=== PATIENT | male | born 1950 | race Caucasian/White ===

== ENCOUNTER 2019-05-22 14:07 | Inpatient (IN) | payer OTHER ==
[~2019-05-22] VITALS: Ht 157.5 cm; Wt 64.4 kg
[2019-05-22] MEDS ORDERED: PIPERACILLIN/TAZO 3.375 GM in NS 50 ML IV ONE (14:30)
[2019-05-22] MEDS ORDERED: NACL 0.9% 2,000 ML IV ONE (14:30)
[2019-05-22] MEDS ORDERED: INSULIN REGULAR, HUMAN 10 UNITS/0.1 ML INJ IVP ONE (14:30)
[2019-05-22] MEDS ORDERED: VANCOMYCIN HCL 1,000 MG in NS 250 ML IV ONE (14:30)
[2019-05-22] MEDS ORDERED: PIPERACILLIN/TAZOBACTAM 3.375 GM/VIAL (ZOSYN) IV ONE (15:12)
[2019-05-22 15:14] LABS: BASOPHILS # (AUTO) 0.1 K/uL (0.0-0.2); BASOPHILS % (AUTO) 0.5 % (0.0-2.0); EOSINOPHILS # (AUTO) 0.2 K/uL (0.0-0.4); EOSINOPHILS % (AUTO) 1.8 % (0.0-4.0); HEMATOCRIT 34.6 % (36-54); HEMOGLOBIN 11.7 g/dL (14.0-18.0); LYMPHOCYTES # (AUTO) 2.2 K/uL (1.0-5.5); LYMPHOCYTES % (AUTO) 20.7 % (20.5-51.5); MEAN CORPUSCULAR HEMOGLOBIN 28 pg (27-31); MEAN CORPUSCULAR HGB CONC 34 % (32-36); MEAN CORPUSCULAR VOLUME 82 fL (79.0-98.0); MONOCYTES # (AUTO) 0.5 K/uL (0.0-1.0); MONOCYTES % (AUTO) 4.7 % (1.7-9.3); NEUTROPHILS # (AUTO) 7.8 K/uL (1.8-7.7); NEUTROPHILS % (AUTO) 72.3 % (40.0-70.0); PLATELET COUNT (AUTO) 366 K/uL (130-430); RED BLOOD CELL COUNT(AUTO) 4.24 MIL/uL (4.2-6.2); RED CELL DISTRIBUTION WIDTH 15.2 % (9.0-15.0); WHITE BLOOD COUNT (AUTO) 10.8 K/uL (4.8-10.8)
[2019-05-22 16:19] LABS: CALCIUM 8.4 mg/dL (8.4-11.0); CREATININE 0.54 mg/dL (0.55-1.30); POTASSIUM 3.7 mmol/L (3.5-5.1)
[2019-05-22 16:25] LABS: ALBUMIN 2.5 g/dL (3.4-4.8); TOTAL BILIRUBIN 0.2 mg/dL (0.0-1.0)
[2019-05-22] MEDS ORDERED: VANCOMYCIN HCL 1000 MG/VIAL IV ONE (16:26)
[2019-05-22] MEDS ORDERED: KCL 20 mEq in D5/0.45NS 1000mL 1,000 ML IV ONE ×2 (17:00→23:49)
[2019-05-22] MEDS ORDERED: hydrALAZINE HCL 20 MG/ML VIAL IVP ONE (17:00)
[2019-05-22] MEDS ORDERED: HUM10VIA SQ (17:04)
[2019-05-22] MEDS ORDERED: AMPICILLIN SODIUM/SULBACTAM NA 1.5 GM in NS 50 ML IV SCH (18:15)
[2019-05-22] MEDS ORDERED: AMPICILLIN SODIUM/SULBACTAM NA 3 GM in NS 100 ML IV SCH (18:15)
[2019-05-22 18:59] VITALS: BP_SYST 124
[2019-05-22 19:00] VITALS: BP_SYST 136
[2019-05-22 19:30] VITALS: BP_SYST 136
[2019-05-22] MEDS ORDERED: traMADol HCL HCL 50 MG TABLET (ULTRAM) PO PRN (19:45)
[2019-05-22 19:51] LABS: INR 0.9 (0.80-1.20); PROTHROMBIN TIME 9.2 SECS (9.5-12.5)
[2019-05-22 20:00] VITALS: BP_SYST 136
[2019-05-22] MEDS: LISINOPRIL 10 MG TABLET (PRINIVIL) PO SCH (22:54)
[2019-05-22] MEDS: ENOXAPARIN SODIUM 40 MG/0.4 ML SYRINGE SUBCUT SCH (23:02)
[2019-05-22] MEDS: INSULIN NPH/REGULAR 70-30, 100 UNITS/ML, 10 ML VIAL SQ SCH (23:03)
[2019-05-22] MEDS: INSULIN REGULAR, HUMAN 100 UNITS/ML, 10 ML VIAL (humuLIN R) SUBCUT PRN (23:04)
[2019-05-22] MEDS ORDERED: LISINOPRIL 10 MG TABLET (PRINIVIL) ONE (23:07)
[2019-05-23] MEDS: AMPICILLIN SODIUM/SULBACTAM NA 1.5 GM VIAL ONE ×2 (01:00→01:01)
[2019-05-23] MEDS: AMPICILLIN SODIUM IV SCH ×5 (01:31→23:03)
[2019-05-23] MEDS: NS IV SCH ×5 (01:31→23:03)
[2019-05-23] MEDS ORDERED: AMPICILLIN SODIUM 1 GM VIAL ONE (01:35)
[2019-05-23] MEDS: INSULIN REGULAR, HUMAN 100 UNITS/ML, 10 ML VIAL (humuLIN R) SUBCUT PRN ×4 (06:09→23:08)
[2019-05-23 08:00] VITALS: BP_SYST 117
[2019-05-23] MEDS: INSULIN NPH/REGULAR 70-30, 100 UNITS/ML, 10 ML VIAL SQ SCH ×2 (09:00→23:07)
[2019-05-23] MEDS: ASPIRIN 81 MG TAB.CHEW PO SCH (09:14)
[2019-05-23] MEDS: LISINOPRIL 10 MG TABLET (PRINIVIL) PO SCH (09:15)
[2019-05-23 12:00] VITALS: BP_SYST 143
[2019-05-23 16:00] VITALS: BP_SYST 129
[2019-05-23 20:00] VITALS: BP_SYST 145
[2019-05-23] MEDS: ENOXAPARIN SODIUM 40 MG/0.4 ML SYRINGE SUBCUT SCH (23:07)
[2019-05-24] VITALS: BP_SYST 133
[2019-05-24] MEDS: NS IV SCH ×4 (06:12→23:22)
[2019-05-24] MEDS: AMPICILLIN SODIUM IV SCH ×4 (06:12→23:22)
[2019-05-24 07:30] LABS: BASOPHILS # (AUTO) 0.1 K/uL (0.0-0.2); BASOPHILS % (AUTO) 0.7 % (0.0-2.0); EOSINOPHILS # (AUTO) 0.3 K/uL (0.0-0.4); EOSINOPHILS % (AUTO) 3.5 % (0.0-4.0); HEMATOCRIT 28.6 % (36-54); HEMOGLOBIN 9.7 g/dL (14.0-18.0); LYMPHOCYTES # (AUTO) 2.5 K/uL (1.0-5.5); MEAN CORPUSCULAR HEMOGLOBIN 28 pg (27-31); MEAN CORPUSCULAR HGB CONC 34 % (32-36); MEAN CORPUSCULAR VOLUME 82 fL (79.0-98.0); MONOCYTES # (AUTO) 0.5 K/uL (0.0-1.0); MONOCYTES % (AUTO) 5.7 % (1.7-9.3); NEUTROPHILS # (AUTO) 4.8 K/uL (1.8-7.7); NEUTROPHILS % (AUTO) 59.1 % (40.0-70.0); PLATELET COUNT (AUTO) 353 K/uL (130-430); RED BLOOD CELL COUNT(AUTO) 3.49 MIL/uL (4.2-6.2); RED CELL DISTRIBUTION WIDTH 15.3 % (9.0-15.0); WHITE BLOOD COUNT (AUTO) 8.1 K/uL (4.8-10.8)
[2019-05-24 07:51] LABS: CALCIUM 8.3 mg/dL (8.4-11.0); CREATININE 0.67 mg/dL (0.55-1.30); POTASSIUM 3.7 mmol/L (3.5-5.1)
[2019-05-24 08:00] VITALS: BP_SYST 145
[2019-05-24] MEDS: ASPIRIN 81 MG TAB.CHEW PO SCH (09:50)
[2019-05-24] MEDS: LISINOPRIL 10 MG TABLET (PRINIVIL) PO SCH (09:50)
[2019-05-24] MEDS: INSULIN NPH/REGULAR 70-30, 100 UNITS/ML, 10 ML VIAL SQ SCH ×2 (09:55→20:26)
[2019-05-24] MEDS: INSULIN REGULAR, HUMAN 100 UNITS/ML, 10 ML VIAL (humuLIN R) SUBCUT PRN ×2 (11:30→20:23)
[2019-05-24 12:00] VITALS: BP_SYST 152
[2019-05-24 16:00] VITALS: BP_SYST 133
[2019-05-24 20:00] VITALS: BP_SYST 149
[2019-05-24] MEDS: ENOXAPARIN SODIUM 40 MG/0.4 ML SYRINGE SUBCUT SCH (20:26)
[2019-05-24] MEDS: TEMAZEPAM 15 MG CAPSULE PO PRN (23:20)
[2019-05-25 00:17] VITALS: BP_SYST 140
[2019-05-25] MEDS: AMPICILLIN SODIUM IV SCH ×4 (05:28→23:30)
[2019-05-25] MEDS: NS IV SCH ×4 (05:28→23:30)
[2019-05-25 08:00] VITALS: BP_SYST 162
[2019-05-25] MEDS: ASPIRIN 81 MG TAB.CHEW PO SCH (08:55)
[2019-05-25] MEDS: LISINOPRIL 10 MG TABLET (PRINIVIL) PO SCH (08:56)
[2019-05-25] MEDS: INSULIN NPH/REGULAR 70-30, 100 UNITS/ML, 10 ML VIAL SQ SCH ×2 (08:59→20:50)
[2019-05-25] MEDS: INSULIN REGULAR, HUMAN 100 UNITS/ML, 10 ML VIAL (humuLIN R) SUBCUT PRN ×3 (12:00→20:55)
[2019-05-25 12:57] VITALS: BP_SYST 156
[2019-05-25] MEDS ORDERED: LISINOPRIL 20 MG TABLET PO ONE (15:00)
[2019-05-25 16:42] VITALS: BP_SYST 141
[2019-05-25 20:00] VITALS: BP_SYST 138
[2019-05-25] MEDS: ENOXAPARIN SODIUM 40 MG/0.4 ML SYRINGE SUBCUT SCH (20:51)
[2019-05-25] MEDS: TEMAZEPAM 15 MG CAPSULE PO PRN (21:09)
[2019-05-26 00:37] VITALS: BP_SYST 116
[2019-05-26] MEDS: NS IV SCH ×2 (05:25→13:05)
[2019-05-26] MEDS: AMPICILLIN SODIUM IV SCH ×2 (05:25→13:05)
[2019-05-26 07:51] VITALS: BP_SYST 125
[2019-05-26] MEDS ORDERED: NYSTATIN 15 GM TOPICAL POWDER TP SCH (09:00)
[2019-05-26] MEDS: ASPIRIN 81 MG TAB.CHEW PO SCH (09:22)
[2019-05-26] MEDS: INSULIN NPH/REGULAR 70-30, 100 UNITS/ML, 10 ML VIAL SQ SCH (09:24)
[2019-05-26] MEDS: INSULIN REGULAR, HUMAN 100 UNITS/ML, 10 ML VIAL (humuLIN R) SUBCUT PRN (12:59)
[2019-05-26 16:11] VITALS: BP_SYST 151
== END 2019-05-26 18:31 | DRG 564 ==
LOC: SED 14:07 → STU 16:48 → SMU 05-24 13:46
PROVIDERS: ADMIT Family Medicine; ATTEND Family Medicine
PROC: 02HV33Z Insertion of Infusion Device into Superior Vena Cava, Percutaneous Approach (ICD-10-PCS; principal; 2019-05-23)
PROC: B548ZZA Ultrasonography of Superior Vena Cava, Guidance (ICD-10-PCS; 2019-05-23)
DX: T87.43 Infection of amputation stump, right lower extremity (principal); E43 Unspecified severe protein-calorie malnutrition; L03.115 Cellulitis of right lower limb; E11.51 Type 2 diabetes mellitus with diabetic peripheral angiopathy without gangrene; E11.65 Type 2 diabetes mellitus with hyperglycemia; I10 Essential (primary) hypertension; Y83.5 Amputation of limb(s) as the cause of abnormal reaction of the patient, or of later complication, without mention of misadventure at the time of the procedure; J44.9 Chronic obstructive pulmonary disease, unspecified; F17.200 Nicotine dependence, unspecified, uncomplicated; Z79.4 Long term (current) use of insulin; Z89.511 Acquired absence of right leg below knee; Y92.89 Other specified places as the place of occurrence of the external cause; Z91.14 Patient's other noncompliance with medication regimen; Z79.899 Other long term (current) drug therapy; Z89.612 Acquired absence of left leg above knee
CPT/HCPCS: 36415; 71045; 80048; 80053; 82962; 83605; 85025; 85610-TC; 85730-TC; 96365; 96367; 96375; 99285; C1751; G0378; J0290; J0295; J0360; J1650; J1815; J2543; J3370; J7030

== ENCOUNTER 2019-07-26 05:29 | Inpatient (IN) | payer OTHER, MEDICAID ==
[~2019-07-26] VITALS: Ht 157.5 cm; Wt 59.9 kg
[~2019-07-26 05:29] MED LIST: HUM10VIA SQ
[2019-07-26 05:36] VITALS: BP_SYST 158
[2019-07-26] MEDS ORDERED: NS 500 ML IV ONE (06:00)
[2019-07-26 06:25] LABS: BASOPHILS # (AUTO) 0.1 K/uL (0.0-0.2); BASOPHILS % (AUTO) 0.5 % (0.0-2.0); EOSINOPHILS # (AUTO) 0.4 K/uL (0.0-0.4); EOSINOPHILS % (AUTO) 4.3 % (0.0-4.0); HEMATOCRIT 35.8 % (36-54); LYMPHOCYTES % (AUTO) 21.6 % (20.5-51.5); MEAN CORPUSCULAR HEMOGLOBIN 27 pg (27-31); MEAN CORPUSCULAR HGB CONC 34 % (32-36); MEAN CORPUSCULAR VOLUME 81 fL (79.0-98.0); MONOCYTES # (AUTO) 0.6 K/uL (0.0-1.0); NEUTROPHILS # (AUTO) 6.4 K/uL (1.8-7.7); NEUTROPHILS % (AUTO) 67.6 % (40.0-70.0); PLATELET COUNT (AUTO) 287 K/uL (130-430); RED CELL DISTRIBUTION WIDTH 14.8 % (9.0-15.0); WHITE BLOOD COUNT (AUTO) 9.5 K/uL (4.8-10.8)
[2019-07-26 06:50] LABS: CALCIUM 8.8 mg/dL (8.4-11.0); CREATININE 0.75 mg/dL (0.55-1.30); POTASSIUM 3.9 mmol/L (3.5-5.1)
[2019-07-26 06:52] LABS: INR 0.9 (0.80-1.20); PROTHROMBIN TIME 9.5 SECS (9.5-12.5)
[2019-07-26 07:04] LABS: ALBUMIN 2.9 g/dL (3.4-4.8); TOTAL BILIRUBIN 0.4 mg/dL (0.0-1.0)
[2019-07-26] MEDS ORDERED: SULFAMETHOXAZOLE/TRIMETHOPR DS 1 TABLET PO ONE (07:15)
[2019-07-26 08:07] LABS: BILIRUBIN,URINE NEGATIVE (NEGATIVE); BLOOD, URINE 2+ (NEGATIVE); CLARITY/URINE SL CLOUDY (CLEAR); COLOR,URINE YELLOW (YELLOW); GLUCOSE,URINE NEGATIVE (NEGATIVE); KETONES,URINE TRACE (NEGATIVE); LEUKOCYTE ESTERASE ,URINE 2+ (NEGATIVE); NITRITE, URINE NEGATIVE (NEGATIVE); PH,URINE 6.5 (5.0-8.0); PROTEIN URINE 3+ (NEGATIVE); UROBILINOGEN,URINE 0.2 (0.2-1.0)
[2019-07-26 08:20] VITALS: BP_SYST 147
[2019-07-26 08:24] VITALS: BP_SYST 147
[2019-07-26 08:41] LABS: BACTERIA,URINE FEW /HPF (None Seen); RBC,URINE 20-50 /HPF (0-3); WBC,URINE 50-80 /HPF (0-3)
[2019-07-26] MEDS ORDERED: LORazepam 2 MG/ML VIAL IVP PRN (08:45)
[2019-07-26] MEDS ORDERED: ACETAMINOPHEN 325 MG TABLET PO PRN (08:45)
[2019-07-26] MEDS ORDERED: ONDANSETRON HCL 4 MG/2 ML VIAL IVP PRN (08:45)
[2019-07-26] MEDS ORDERED: HYDROcodone/ACETAMIN 5-325 MG TAB (NORCO/ VICODIN) PO PRN (08:45)
[2019-07-26] MEDS: NACL 0.9% 1,000 ML IV SCH ×3 (09:51→22:18)
[2019-07-26] MEDS: cefTRIAXone 1 GM IVPB PREMIX 50 ML IV SCH (09:52)
[2019-07-26] MEDS: INSULIN REGULAR, HUMAN 100 UNITS/ML, 10 ML VIAL (humuLIN R) SUBCUT PRN ×2 (11:14→21:17)
[2019-07-26 12:30] VITALS: BP_SYST 173
[2019-07-26 17:08] VITALS: BP_SYST 159
[2019-07-26 20:00] VITALS: BP_SYST 159
[2019-07-27 00:33] VITALS: BP_SYST 157
[2019-07-27] MEDS: cloNIDine HCL 0.1 MG TABLET PO PRN ×2 (00:40→09:27)
[2019-07-27 04:19] VITALS: BP_SYST 142
[2019-07-27] MEDS: NACL 0.9% 1,000 ML IV SCH ×2 (06:09→21:10)
[2019-07-27 06:30] LABS: BASOPHILS % (AUTO) 0.5 % (0.0-2.0); EOSINOPHILS # (AUTO) 0.4 K/uL (0.0-0.4); EOSINOPHILS % (AUTO) 5.6 % (0.0-4.0); HEMATOCRIT 30.6 % (36-54); HEMOGLOBIN 10.4 g/dL (14.0-18.0); LYMPHOCYTES # (AUTO) 2.1 K/uL (1.0-5.5); LYMPHOCYTES % (AUTO) 33.2 % (20.5-51.5); MEAN CORPUSCULAR HEMOGLOBIN 27 pg (27-31); MEAN CORPUSCULAR HGB CONC 34 % (32-36); MEAN CORPUSCULAR VOLUME 80 fL (79.0-98.0); MONOCYTES # (AUTO) 0.4 K/uL (0.0-1.0); MONOCYTES % (AUTO) 5.8 % (1.7-9.3); NEUTROPHILS # (AUTO) 3.5 K/uL (1.8-7.7); NEUTROPHILS % (AUTO) 54.9 % (40.0-70.0); PLATELET COUNT (AUTO) 234 K/uL (130-430); RED BLOOD CELL COUNT(AUTO) 3.81 MIL/uL (4.2-6.2); WHITE BLOOD COUNT (AUTO) 6.4 K/uL (4.8-10.8)
[2019-07-27 06:40] LABS: CALCIUM 7.7 mg/dL (8.4-11.0); CREATININE 0.82 mg/dL (0.55-1.30); POTASSIUM 3.8 mmol/L (3.5-5.1)
[2019-07-27 07:17] LABS: ERYTHROCYTE SEDIMENTATION RATE 36 MM/HR (0-15)
[2019-07-27 07:52] VITALS: BP_SYST 172
[2019-07-27 07:55] LABS: C-REACTIVE PROTEIN QUANT 1.5 mg/dL (0-0.5)
[2019-07-27] MEDS: cefTRIAXone 1 GM IVPB PREMIX 50 ML IV SCH (08:19)
[2019-07-27 12:45] VITALS: BP_SYST 152
[2019-07-27] MEDS: VANCOMYCIN HCL 1,250 MG in NS 250 ML IV SCH (13:14)
[2019-07-27 16:38] VITALS: BP_SYST 131
[2019-07-27] MEDS: INSULIN REGULAR, HUMAN 100 UNITS/ML, 10 ML VIAL (humuLIN R) SUBCUT PRN ×2 (16:38→20:54)
[2019-07-27 20:25] VITALS: BP_SYST 120
[2019-07-28 00:20] VITALS: BP_SYST 144
[2019-07-28 06:25] LABS: BASOPHILS % (AUTO) 0.5 % (0.0-2.0); EOSINOPHILS # (AUTO) 0.5 K/uL (0.0-0.4); EOSINOPHILS % (AUTO) 7.4 % (0.0-4.0); HEMATOCRIT 31.1 % (36-54); HEMOGLOBIN 10.5 g/dL (14.0-18.0); LYMPHOCYTES # (AUTO) 1.2 K/uL (1.0-5.5); LYMPHOCYTES % (AUTO) 18.7 % (20.5-51.5); MEAN CORPUSCULAR HEMOGLOBIN 27 pg (27-31); MEAN CORPUSCULAR HGB CONC 34 % (32-36); MEAN CORPUSCULAR VOLUME 81 fL (79.0-98.0); MONOCYTES # (AUTO) 0.4 K/uL (0.0-1.0); MONOCYTES % (AUTO) 6.1 % (1.7-9.3); NEUTROPHILS # (AUTO) 4.3 K/uL (1.8-7.7); NEUTROPHILS % (AUTO) 67.3 % (40.0-70.0); PLATELET COUNT (AUTO) 212 K/uL (130-430); RED BLOOD CELL COUNT(AUTO) 3.85 MIL/uL (4.2-6.2); WHITE BLOOD COUNT (AUTO) 6.5 K/uL (4.8-10.8)
[2019-07-28] MEDS: NACL 0.9% 1,000 ML IV SCH ×2 (06:44→21:20)
[2019-07-28 06:52] LABS: C-REACTIVE PROTEIN QUANT 0.9 mg/dL (0-0.5); CALCIUM 7.8 mg/dL (8.4-11.0); CREATININE 0.77 mg/dL (0.55-1.30); POTASSIUM 3.7 mmol/L (3.5-5.1)
[2019-07-28 07:37] LABS: ERYTHROCYTE SEDIMENTATION RATE 37 MM/HR (0-15)
[2019-07-28 09:00] VITALS: BP_SYST 165
[2019-07-28] MEDS: cefTRIAXone 1 GM IVPB PREMIX 50 ML IV SCH (10:04)
[2019-07-28] MEDS: cloNIDine HCL 0.1 MG TABLET PO PRN (10:16)
[2019-07-28] MEDS: HYDROcodone/ACETAMIN 10-325 MG TAB PO PRN ×2 (10:16→21:21)
[2019-07-28] MEDS: INSULIN REGULAR, HUMAN 100 UNITS/ML, 10 ML VIAL (humuLIN R) SUBCUT PRN ×2 (12:56→21:19)
[2019-07-28] MEDS: VANCOMYCIN HCL 1,250 MG in NS 250 ML IV SCH (13:02)
[2019-07-28 13:04] VITALS: BP_SYST 147
[2019-07-28 17:39] VITALS: BP_SYST 155
[2019-07-28 18:22] LABS: PROTHROMBIN TIME 9.9 SECS (9.5-12.5)
[2019-07-28 20:43] VITALS: BP_SYST 145
[2019-07-29 00:11] VITALS: BP_SYST 147
[2019-07-29] MEDS: NACL 0.9% 1,000 ML IV SCH ×3 (06:28→21:38)
[2019-07-29 06:34] LABS: BASOPHILS % (AUTO) 0.8 % (0.0-2.0); EOSINOPHILS # (AUTO) 0.6 K/uL (0.0-0.4); EOSINOPHILS % (AUTO) 9.5 % (0.0-4.0); HEMATOCRIT 29.3 % (36-54); HEMOGLOBIN 10.1 g/dL (14.0-18.0); LYMPHOCYTES # (AUTO) 1.4 K/uL (1.0-5.5); LYMPHOCYTES % (AUTO) 23.7 % (20.5-51.5); MEAN CORPUSCULAR HEMOGLOBIN 28 pg (27-31); MEAN CORPUSCULAR HGB CONC 35 % (32-36); MEAN CORPUSCULAR VOLUME 80 fL (79.0-98.0); MONOCYTES # (AUTO) 0.4 K/uL (0.0-1.0); MONOCYTES % (AUTO) 6.7 % (1.7-9.3); NEUTROPHILS # (AUTO) 3.5 K/uL (1.8-7.7); NEUTROPHILS % (AUTO) 59.3 % (40.0-70.0); PLATELET COUNT (AUTO) 209 K/uL (130-430); RED BLOOD CELL COUNT(AUTO) 3.64 MIL/uL (4.2-6.2); RED CELL DISTRIBUTION WIDTH 14.7 % (9.0-15.0); WHITE BLOOD COUNT (AUTO) 5.8 K/uL (4.8-10.8)
[2019-07-29 06:47] LABS: C-REACTIVE PROTEIN QUANT 0.9 mg/dL (0-0.5); CALCIUM 7.5 mg/dL (8.4-11.0); CREATININE 0.81 mg/dL (0.55-1.30); POTASSIUM 3.9 mmol/L (3.5-5.1)
[2019-07-29 08:16] VITALS: BP_SYST 165
[2019-07-29 08:20] LABS: ERYTHROCYTE SEDIMENTATION RATE 38 MM/HR (0-15)
[2019-07-29] MEDS ORDERED: DIPHENHYDRAMINE HCL 50 MG CAPSULE PO PRN (10:15)
[2019-07-29] MEDS: cefTRIAXone 1 GM IVPB PREMIX 50 ML IV SCH (12:03)
[2019-07-29 12:05] VITALS: BP_SYST 156
[2019-07-29 12:31] LABS: INR 0.9 (0.80-1.20); PROTHROMBIN TIME 9.3 SECS (9.5-12.5)
[2019-07-29] MEDS: INSULIN REGULAR, HUMAN 100 UNITS/ML, 10 ML VIAL (humuLIN R) SUBCUT PRN ×2 (12:39→21:44)
[2019-07-29] MEDS ORDERED: D5W 1,000 ML IV PRN (12:45)
[2019-07-29] MEDS ORDERED: DEXTROSE 50%-WATER 50 ML DISP.SYRIN IVP PRN (12:45)
[2019-07-29] MEDS ORDERED: GLUCOSE 15 GM GEL (in 37.5 GM TUBE) PO PRN (12:45)
[2019-07-29] MEDS: VANCOMYCIN HCL 1,500 MG in NS 250 ML IV SCH (12:51)
[2019-07-29 16:10] VITALS: BP_SYST 153
[2019-07-29] MEDS ORDERED: HYDROCHLOROTHIAZIDE 25 MG TABLET (HCTZ) PO ONE (17:15)
[2019-07-29 20:00] VITALS: BP_SYST 146
[2019-07-29] MEDS: LISINOPRIL 10 MG TABLET (PRINIVIL) PO SCH (21:43)
[2019-07-29] MEDS: HYDROcodone/ACETAMIN 10-325 MG TAB PO PRN (23:12)
[2019-07-30 00:37] VITALS: BP_SYST 140
[2019-07-30 06:40] LABS: BASOPHILS # (AUTO) 0.1 K/uL (0.0-0.2); CALCIUM 7.8 mg/dL (8.4-11.0); CREATININE 0.78 mg/dL (0.55-1.30); EOSINOPHILS # (AUTO) 0.6 K/uL (0.0-0.4); EOSINOPHILS % (AUTO) 7.5 % (0.0-4.0); HEMATOCRIT 30.6 % (36-54); HEMOGLOBIN 10.6 g/dL (14.0-18.0); LYMPHOCYTES # (AUTO) 1.8 K/uL (1.0-5.5); LYMPHOCYTES % (AUTO) 23.2 % (20.5-51.5); MEAN CORPUSCULAR HEMOGLOBIN 28 pg (27-31); MEAN CORPUSCULAR HGB CONC 35 % (32-36); MEAN CORPUSCULAR VOLUME 79 fL (79.0-98.0); MONOCYTES # (AUTO) 0.5 K/uL (0.0-1.0); NEUTROPHILS # (AUTO) 4.9 K/uL (1.8-7.7); NEUTROPHILS % (AUTO) 62.3 % (40.0-70.0); PLATELET COUNT (AUTO) 233 K/uL (130-430); POTASSIUM 3.9 mmol/L (3.5-5.1); RED BLOOD CELL COUNT(AUTO) 3.86 MIL/uL (4.2-6.2)
[2019-07-30 07:00] LABS: WHITE BLOOD COUNT (AUTO) 7.9 K/uL (4.8-10.8)
[2019-07-30 08:23] LABS: ERYTHROCYTE SEDIMENTATION RATE 38 MM/HR (0-15)
[2019-07-30] MEDS: cefTRIAXone 1 GM IVPB PREMIX 50 ML IV SCH (08:35)
[2019-07-30] MEDS: HYDROCHLOROTHIAZIDE 25 MG TABLET (HCTZ) PO SCH (08:35)
[2019-07-30 09:28] VITALS: BP_SYST 146
[2019-07-30 12:54] VITALS: BP_SYST 139
[2019-07-30] MEDS: NACL 0.9% 1,000 ML IV SCH (13:03)
[2019-07-30] MEDS: INSULIN REGULAR, HUMAN 100 UNITS/ML, 10 ML VIAL (humuLIN R) SUBCUT PRN ×2 (13:09→17:08)
[2019-07-30] MEDS: HYDROcodone/ACETAMIN 10-325 MG TAB PO PRN (15:15)
[2019-07-30] MEDS: VANCOMYCIN HCL 1,500 MG in NS 250 ML IV SCH (16:00)
[2019-07-30 16:50] VITALS: BP_SYST 139
[2019-07-30 20:00] VITALS: BP_SYST 137
[2019-07-30] MEDS: LISINOPRIL 10 MG TABLET (PRINIVIL) PO SCH (20:01)
[2019-07-31 00:50] VITALS: BP_SYST 150
[2019-07-31] MEDS: HYDROcodone/ACETAMIN 10-325 MG TAB PO PRN (01:06)
[2019-07-31] MEDS: NACL 0.9% 1,000 ML IV SCH ×3 (01:12→21:47)
[2019-07-31] MEDS: DIPHENHYDRAMINE HCL 50 MG CAPSULE PO PRN ×2 (04:14→18:22)
[2019-07-31 07:09] LABS: BASOPHILS # (AUTO) 0.1 K/uL (0.0-0.2); BASOPHILS % (AUTO) 0.7 % (0.0-2.0); EOSINOPHILS # (AUTO) 0.6 K/uL (0.0-0.4); EOSINOPHILS % (AUTO) 6.6 % (0.0-4.0); HEMATOCRIT 29.3 % (36-54); HEMOGLOBIN 10.1 g/dL (14.0-18.0); LYMPHOCYTES # (AUTO) 1.7 K/uL (1.0-5.5); LYMPHOCYTES % (AUTO) 20.4 % (20.5-51.5); MEAN CORPUSCULAR HEMOGLOBIN 28 pg (27-31); MEAN CORPUSCULAR HGB CONC 34 % (32-36); MONOCYTES # (AUTO) 0.5 K/uL (0.0-1.0); MONOCYTES % (AUTO) 5.9 % (1.7-9.3); NEUTROPHILS # (AUTO) 5.7 K/uL (1.8-7.7); NEUTROPHILS % (AUTO) 66.4 % (40.0-70.0); PLATELET COUNT (AUTO) 227 K/uL (130-430); RED BLOOD CELL COUNT(AUTO) 3.62 MIL/uL (4.2-6.2); RED CELL DISTRIBUTION WIDTH 14.9 % (9.0-15.0); WHITE BLOOD COUNT (AUTO) 8.5 K/uL (4.8-10.8)
[2019-07-31 07:25] LABS: C-REACTIVE PROTEIN QUANT 1.3 mg/dL (0-0.5); CALCIUM 7.8 mg/dL (8.4-11.0); CREATININE 0.83 mg/dL (0.55-1.30); MEAN CORPUSCULAR VOLUME 81 fL (79.0-98.0); POTASSIUM 3.8 mmol/L (3.5-5.1)
[2019-07-31 08:04] VITALS: BP_SYST 140
[2019-07-31] MEDS: cefTRIAXone 1 GM IVPB PREMIX 50 ML IV SCH (09:04)
[2019-07-31] MEDS: HYDROCHLOROTHIAZIDE 25 MG TABLET (HCTZ) PO SCH (09:05)
[2019-07-31 09:25] LABS: ERYTHROCYTE SEDIMENTATION RATE 49 MM/HR (0-15)
[2019-07-31 12:30] VITALS: BP_SYST 133
[2019-07-31] MEDS: VANCOMYCIN HCL 1,500 MG in NS 250 ML IV SCH (13:49)
[2019-07-31 16:21] VITALS: BP_SYST 145
[2019-07-31 20:00] VITALS: BP_SYST 157
[2019-07-31] MEDS: LISINOPRIL 10 MG TABLET (PRINIVIL) PO SCH (21:47)
[2019-07-31] MEDS: INSULIN REGULAR, HUMAN 100 UNITS/ML, 10 ML VIAL (humuLIN R) SUBCUT PRN (21:51)
[2019-08-01] VITALS (7 sets, daily range): BP systolic 142–165
[2019-08-01] MEDS: NACL 0.9% 1,000 ML IV SCH ×2 (05:55→18:48)
[2019-08-01 06:41] LABS: BASOPHILS % (AUTO) 0.5 % (0.0-2.0); EOSINOPHILS # (AUTO) 0.5 K/uL (0.0-0.4); EOSINOPHILS % (AUTO) 5.5 % (0.0-4.0); HEMATOCRIT 32.9 % (36-54); HEMOGLOBIN 11.2 g/dL (14.0-18.0); LYMPHOCYTES # (AUTO) 1.6 K/uL (1.0-5.5); LYMPHOCYTES % (AUTO) 18.6 % (20.5-51.5); MEAN CORPUSCULAR HEMOGLOBIN 27 pg (27-31); MEAN CORPUSCULAR HGB CONC 34 % (32-36); MEAN CORPUSCULAR VOLUME 81 fL (79.0-98.0); MONOCYTES # (AUTO) 0.5 K/uL (0.0-1.0); MONOCYTES % (AUTO) 5.4 % (1.7-9.3); NEUTROPHILS # (AUTO) 6.1 K/uL (1.8-7.7); PLATELET COUNT (AUTO) 264 K/uL (130-430); RED BLOOD CELL COUNT(AUTO) 4.08 MIL/uL (4.2-6.2); RED CELL DISTRIBUTION WIDTH 15.1 % (9.0-15.0); WHITE BLOOD COUNT (AUTO) 8.7 K/uL (4.8-10.8)
[2019-08-01 06:53] LABS: C-REACTIVE PROTEIN QUANT 1.8 mg/dL (0-0.5); CALCIUM 8.6 mg/dL (8.4-11.0); CREATININE 0.77 mg/dL (0.55-1.30); POTASSIUM 3.5 mmol/L (3.5-5.1)
[2019-08-01 08:33] LABS: ERYTHROCYTE SEDIMENTATION RATE 56 MM/HR (0-15)
[2019-08-01] MEDS: cefTRIAXone 1 GM IVPB PREMIX 50 ML IV SCH (09:10)
[2019-08-01] MEDS: HYDROCHLOROTHIAZIDE 25 MG TABLET (HCTZ) PO SCH (09:10)
[2019-08-01] MEDS: DIPHENHYDRAMINE HCL 50 MG CAPSULE PO PRN ×2 (11:57→18:22)
[2019-08-01] MEDS: INSULIN REGULAR, HUMAN 100 UNITS/ML, 10 ML VIAL (humuLIN R) SUBCUT PRN ×2 (11:58→20:17)
[2019-08-01] MEDS: VANCOMYCIN HCL 1,500 MG in NS 250 ML IV SCH (13:50)
[2019-08-01] MEDS: LISINOPRIL 10 MG TABLET (PRINIVIL) PO SCH (20:15)
[2019-08-02] MEDS: NACL 0.9% 1,000 ML IV SCH ×3 (00:06→21:16)
[2019-08-02 08:15] LABS: BASOPHILS # (AUTO) 0.1 K/uL (0.0-0.2); BASOPHILS % (AUTO) 0.7 % (0.0-2.0); EOSINOPHILS # (AUTO) 0.4 K/uL (0.0-0.4); EOSINOPHILS % (AUTO) 5.5 % (0.0-4.0); HEMATOCRIT 30.9 % (36-54); HEMOGLOBIN 10.5 g/dL (14.0-18.0); LYMPHOCYTES # (AUTO) 1.9 K/uL (1.0-5.5); LYMPHOCYTES % (AUTO) 24.4 % (20.5-51.5); MEAN CORPUSCULAR HEMOGLOBIN 27 pg (27-31); MEAN CORPUSCULAR HGB CONC 34 % (32-36); MEAN CORPUSCULAR VOLUME 80 fL (79.0-98.0); MONOCYTES # (AUTO) 0.5 K/uL (0.0-1.0); NEUTROPHILS % (AUTO) 63.4 % (40.0-70.0); PLATELET COUNT (AUTO) 252 K/uL (130-430); RED BLOOD CELL COUNT(AUTO) 3.84 MIL/uL (4.2-6.2); RED CELL DISTRIBUTION WIDTH 15.6 % (9.0-15.0)
[2019-08-02 08:19] VITALS: BP_SYST 165
[2019-08-02 08:20] LABS: C-REACTIVE PROTEIN QUANT 1.5 mg/dL (0-0.5); CALCIUM 8.2 mg/dL (8.4-11.0); CREATININE 0.72 mg/dL (0.55-1.30); POTASSIUM 3.8 mmol/L (3.5-5.1)
[2019-08-02] MEDS: HYDROCHLOROTHIAZIDE 25 MG TABLET (HCTZ) PO SCH (08:27)
[2019-08-02] MEDS: cefTRIAXone 1 GM IVPB PREMIX 50 ML IV SCH (08:28)
[2019-08-02] MEDS: cloNIDine HCL 0.1 MG TABLET PO PRN (08:30)
[2019-08-02 09:13] LABS: ERYTHROCYTE SEDIMENTATION RATE 53 MM/HR (0-15)
[2019-08-02] MEDS: INSULIN REGULAR, HUMAN 100 UNITS/ML, 10 ML VIAL (humuLIN R) SUBCUT PRN ×2 (11:56→21:24)
[2019-08-02 12:00] VITALS: BP_SYST 149
[2019-08-02] MEDS: VANCOMYCIN HCL 1,500 MG in NS 250 ML IV SCH (14:19)
[2019-08-02 19:30] VITALS: BP_SYST 133
[2019-08-02] MEDS: LISINOPRIL 10 MG TABLET (PRINIVIL) PO SCH (21:17)
[2019-08-03] MEDS: NACL 0.9% 1,000 ML IV SCH ×2 (06:12→21:02)
[2019-08-03 06:42] LABS: BASOPHILS # (AUTO) 0.1 K/uL (0.0-0.2); BASOPHILS % (AUTO) 0.7 % (0.0-2.0); EOSINOPHILS # (AUTO) 0.4 K/uL (0.0-0.4); EOSINOPHILS % (AUTO) 5.5 % (0.0-4.0); HEMATOCRIT 31.2 % (36-54); HEMOGLOBIN 10.7 g/dL (14.0-18.0); LYMPHOCYTES # (AUTO) 1.9 K/uL (1.0-5.5); LYMPHOCYTES % (AUTO) 24.5 % (20.5-51.5); MEAN CORPUSCULAR HEMOGLOBIN 27 pg (27-31); MEAN CORPUSCULAR HGB CONC 34 % (32-36); MEAN CORPUSCULAR VOLUME 80 fL (79.0-98.0); MONOCYTES # (AUTO) 0.4 K/uL (0.0-1.0); MONOCYTES % (AUTO) 5.6 % (1.7-9.3); NEUTROPHILS # (AUTO) 4.9 K/uL (1.8-7.7); NEUTROPHILS % (AUTO) 63.7 % (40.0-70.0); PLATELET COUNT (AUTO) 260 K/uL (130-430); RED BLOOD CELL COUNT(AUTO) 3.91 MIL/uL (4.2-6.2); RED CELL DISTRIBUTION WIDTH 15.3 % (9.0-15.0); WHITE BLOOD COUNT (AUTO) 7.7 K/uL (4.8-10.8)
[2019-08-03 07:01] LABS: ALBUMIN 2.6 g/dL (3.4-4.8); C-REACTIVE PROTEIN QUANT 1.1 mg/dL (0-0.5); CALCIUM 8.2 mg/dL (8.4-11.0); CREATININE 0.83 mg/dL (0.55-1.30); POTASSIUM 3.6 mmol/L (3.5-5.1); TOTAL BILIRUBIN 0.2 mg/dL (0.0-1.0)
[2019-08-03 07:41] LABS: ERYTHROCYTE SEDIMENTATION RATE 51 MM/HR (0-15)
[2019-08-03] MEDS: cefTRIAXone 1 GM IVPB PREMIX 50 ML IV SCH (09:45)
[2019-08-03] MEDS: HYDROCHLOROTHIAZIDE 25 MG TABLET (HCTZ) PO SCH (09:50)
[2019-08-03 09:51] VITALS: BP_SYST 152
[2019-08-03] MEDS: INSULIN REGULAR, HUMAN 100 UNITS/ML, 10 ML VIAL (humuLIN R) SUBCUT PRN ×2 (11:23→21:00)
[2019-08-03 12:23] VITALS: BP_SYST 133
[2019-08-03] MEDS: VANCOMYCIN HCL 1,500 MG in NS 250 ML IV SCH (13:36)
[2019-08-03 16:23] VITALS: BP_SYST 149
[2019-08-03 20:00] VITALS: BP_SYST 145
[2019-08-03] MEDS: LISINOPRIL 10 MG TABLET (PRINIVIL) PO SCH (20:48)
[2019-08-03 23:58] VITALS: BP_SYST 155
[2019-08-04] MEDS: NACL 0.9% 1,000 ML IV SCH ×2 (02:43→06:31)
[2019-08-04 06:13] LABS: CALCIUM 8.3 mg/dL (8.4-11.0); CREATININE 0.76 mg/dL (0.55-1.30); POTASSIUM 3.6 mmol/L (3.5-5.1)
[2019-08-04 06:20] LABS: BASOPHILS % (AUTO) 0.7 % (0.0-2.0); EOSINOPHILS # (AUTO) 0.4 K/uL (0.0-0.4); HEMATOCRIT 31.1 % (36-54); HEMOGLOBIN 10.6 g/dL (14.0-18.0); LYMPHOCYTES # (AUTO) 1.7 K/uL (1.0-5.5); LYMPHOCYTES % (AUTO) 24.6 % (20.5-51.5); MEAN CORPUSCULAR HEMOGLOBIN 28 pg (27-31); MEAN CORPUSCULAR HGB CONC 34 % (32-36); MEAN CORPUSCULAR VOLUME 81 fL (79.0-98.0); MONOCYTES # (AUTO) 0.4 K/uL (0.0-1.0); MONOCYTES % (AUTO) 5.6 % (1.7-9.3); NEUTROPHILS # (AUTO) 4.5 K/uL (1.8-7.7); NEUTROPHILS % (AUTO) 64.1 % (40.0-70.0); PLATELET COUNT (AUTO) 270 K/uL (130-430); RED BLOOD CELL COUNT(AUTO) 3.84 MIL/uL (4.2-6.2); RED CELL DISTRIBUTION WIDTH 15.3 % (9.0-15.0); WHITE BLOOD COUNT (AUTO) 7.1 K/uL (4.8-10.8)
[2019-08-04] MEDS: cefTRIAXone 1 GM IVPB PREMIX 50 ML IV SCH (08:53)
[2019-08-04] MEDS: HYDROCHLOROTHIAZIDE 25 MG TABLET (HCTZ) PO SCH (08:54)
[2019-08-04 09:01] LABS: ERYTHROCYTE SEDIMENTATION RATE 48 MM/HR (0-15)
[2019-08-04] MEDS: INSULIN REGULAR, HUMAN 100 UNITS/ML, 10 ML VIAL (humuLIN R) SUBCUT PRN (11:40)
[2019-08-04 12:25] VITALS: BP_SYST 159
== END 2019-08-04 13:55 | disposition left against medical advice (07) | DRG 602 ==
LOC: SED 05:29 → SMU 07:34
PROVIDERS: ADMIT Preventive Medicine Preventive Medicine/Occupational Environmental Medicine; ATTEND Preventive Medicine Preventive Medicine/Occupational Environmental Medicine
DX: L03.115 Cellulitis of right lower limb (principal); E43 Unspecified severe protein-calorie malnutrition; N39.0 Urinary tract infection, site not specified; Z16.24 Resistance to multiple antibiotics; E87.1 Hypo-osmolality and hyponatremia; B96.89 Other specified bacterial agents as the cause of diseases classified elsewhere; F17.200 Nicotine dependence, unspecified, uncomplicated; I10 Essential (primary) hypertension; E11.65 Type 2 diabetes mellitus with hyperglycemia; E88.09 Other disorders of plasma-protein metabolism, not elsewhere classified; D64.9 Anemia, unspecified; E11.51 Type 2 diabetes mellitus with diabetic peripheral angiopathy without gangrene; L29.9 Pruritus, unspecified; Z53.29 Procedure and treatment not carried out because of patient's decision for other reasons; W07.XXXA Fall from chair, initial encounter; Z22.322 Carrier or suspected carrier of Methicillin resistant Staphylococcus aureus; Z68.24 Body mass index [BMI] 24.0-24.9, adult; Z79.899 Other long term (current) drug therapy; Z89.512 Acquired absence of left leg below knee; Z89.511 Acquired absence of right leg below knee; Y93.89 Activity, other specified; Y92.89 Other specified places as the place of occurrence of the external cause; Y99.8 Other external cause status
CPT/HCPCS: 36415; 71045; 73030; 80048; 80053; 80202-TC; 81000-TC; 82550-TC; 82962; 83605; 83874; 84484; 85025; 85610-TC; 85651-TC; 85730-TC; 86140; 87040-TC; 87081; 87086; 87186-TC; 93005; 97110-GP; 97112-GP; 97530-GP; 99285; C1751; J0696; J1815; J3370; J7030; J7050; Q0163

== ENCOUNTER 2019-10-13 10:12 | Emergency (ER) | payer OTHER, MEDICAID ==
[~2019-10-13] VITALS: Ht 160 cm; Wt 61.2 kg
[2019-10-13 10:35] VITALS: BP_SYST 158
--- NOTE | 2019-10-13 10:35 | NUR ---
Placed in room 06. Placed on cafeteria monitor, blood pressure machine and pulse oximeter. To gown for exam. Side rails up.
--- NOTE | 2019-10-13 10:37 | NUR ---
Patient biba in the ED c/o generalized weakness for the last 2 days. Denied any chest pain or shortness of breath. Denied any fevers, chills, nausea or vomiting. Patient is alert and oriented x4, respirations even and unlabored, speaking in full sentences. VSS, pain level 7/10. Informed of the approximate wait time. Instructed to notify ED staff for any changes in condition or worsening of symptoms while waiting to be seen by an ED provider. Patient verbalized understanding.
--- NOTE | 2019-10-13 10:39 | NUR ---
SARA Wing at bedside examining patient.
--- NOTE | 2019-10-13 10:41 | NUR ---
X-ray done at bedside as ordered by Dr. Wing. Patient tolerated the procedure well.
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
--- NOTE | 2019-10-13 10:48 | NUR ---
pCXR at bedside
[2019-10-13 11:31] LABS: BASOPHILS % (AUTO) 0.4 % (0.0-2.0); EOSINOPHILS # (AUTO) 0.1 K/uL (0.0-0.4); EOSINOPHILS % (AUTO) 1.2 % (0.0-4.0); HEMATOCRIT 35.8 % (36-54); HEMOGLOBIN 12.2 g/dL (14.0-18.0); LYMPHOCYTES # (AUTO) 1.8 K/uL (1.0-5.5); LYMPHOCYTES % (AUTO) 16.9 % (20.5-51.5); MEAN CORPUSCULAR HEMOGLOBIN 28 pg (27-31); MEAN CORPUSCULAR HGB CONC 34 % (32-36); MEAN CORPUSCULAR VOLUME 82 fL (79.0-98.0); MONOCYTES # (AUTO) 0.5 K/uL (0.0-1.0); MONOCYTES % (AUTO) 4.4 % (1.7-9.3); NEUTROPHILS # (AUTO) 8.2 K/uL (1.8-7.7); NEUTROPHILS % (AUTO) 77.1 % (40.0-70.0); PLATELET COUNT (AUTO) 303 K/uL (130-430); RED BLOOD CELL COUNT(AUTO) 4.36 MIL/uL (4.2-6.2); RED CELL DISTRIBUTION WIDTH 15.5 % (9.0-15.0); WHITE BLOOD COUNT (AUTO) 10.6 K/uL (4.8-10.8)
[2019-10-13 11:48] LABS: CALCIUM 8.8 mg/dL (8.4-11.0); CREATININE 0.79 mg/dL (0.55-1.30); POTASSIUM 3.9 mmol/L (3.5-5.1)
[2019-10-13 11:57] LABS: ALBUMIN 2.4 g/dL (3.4-4.8); TOTAL BILIRUBIN 0.2 mg/dL (0.0-1.0)
--- NOTE | 2019-10-13 12:05 | NUR ---
# 18 gauge angiocath placed to right hand using asceptic technique per facility protocol. Opsite placed over site. Blood return noted. Flushed with 10 mL of sterile normal saline. No evidence of infiltration noted. Patient tolerated well.
[2019-10-13] MEDS ORDERED: INSULIN REGULAR, HUMAN 10 UNITS/0.1 ML INJ IVP ONE (12:15)
[2019-10-13] MEDS ORDERED: NACL 0.9% 1,000 ML IV ONE (12:15)
[2019-10-13] MEDS ORDERED: KETOROLAC TROMETHAMINE 15 MG VIAL IVP ONE (13:30)
--- NOTE | 2019-10-13 14:00 | NUR ---
Administered Toradol IVP as ordered by Dr. Wing. Patient tolerated the medications well. See eMAR for details.
[2019-10-13 14:50] LABS: BILIRUBIN,URINE NEGATIVE (NEGATIVE); BLOOD, URINE 1+ (NEGATIVE); CLARITY/URINE SL CLOUDY (CLEAR); COLOR,URINE YELLOW (YELLOW); GLUCOSE,URINE 3+ (NEGATIVE); KETONES,URINE NEGATIVE (NEGATIVE); LEUKOCYTE ESTERASE ,URINE TRACE (NEGATIVE); NITRITE, URINE NEGATIVE (NEGATIVE); PH,URINE 6.5 (5.0-8.0); PROTEIN URINE 3+ (NEGATIVE)
[2019-10-13] MEDS ORDERED: cefTRIAXone 1 GM IVPB PREMIX 50 ML IV ONE (15:15)
[2019-10-13 15:36] LABS: BACTERIA,URINE FEW /HPF (None Seen); YEAST,URINE Many /HPF (None Seen)
[2019-10-13] MEDS ORDERED: FLUCONAZOLE 200 MG TABLET (DIFLUCAN) PO ONE (15:45)
--- NOTE | 2019-10-13 16:00 | NUR ---
Administered Diflucan PO as ordered by Dr. Wing. Patient tolerated the medications well. See eMAR for details.
--- NOTE | 2019-10-13 16:43 | NUR ---
Patient moved to Bed 2.
[2019-10-13 17:29] VITALS: BP_SYST 126
--- NOTE | 2019-10-13 17:51 | NUR ---
ER discussed with the patient the results and treatment provided. Patient given written and verbal discharge instructions and verbalized understanding. Opportunity for questions provided and answered. Patient in stable condition, last set of vital signs within normal limits, pain scale 0/10, speaking in full sentences and ambulated with a steady gait upon discharge. IV discontinued as ordered by Dr. Wing, catheter intact. ID arm band removed. Rx of Macrobid given. Patient educated on pain management and to follow up with PMD. Medication side effect fact sheet provided.
== END 2019-10-13 17:29 | disposition home or self-care (01) ==
LOC: SED 10:12
DX: E11.65 Type 2 diabetes mellitus with hyperglycemia (principal); N39.0 Urinary tract infection, site not specified; R53.1 Weakness; I10 Essential (primary) hypertension; Z88.6 Allergy status to analgesic agent
CPT/HCPCS: 36415; 71045; 80053; 81000; 82962; 83605; 83880; 84484; 85025; 87040; 87086; 93005; 96361; 96365; 96375; 99285; J0696; J1815; J1885; J7030

== ENCOUNTER 2019-10-19 13:14 | Emergency (ER) | payer OTHER, MEDICAID ==
[~2019-10-19] VITALS: Ht 134.6 cm; Wt 68.0 kg
[2019-10-19 13:14] VITALS: BP_SYST 165
[2019-10-19] MEDS ORDERED: NACL 0.9% 1,000 ML IV ONE (13:30)
[2019-10-19 13:44] LABS: BASOPHILS % (AUTO) 0.4 % (0.0-2.0); EOSINOPHILS # (AUTO) 0.2 K/uL (0.0-0.4); EOSINOPHILS % (AUTO) 1.7 % (0.0-4.0); HEMATOCRIT 32.4 % (36-54); LYMPHOCYTES # (AUTO) 1.7 K/uL (1.0-5.5); LYMPHOCYTES % (AUTO) 16.9 % (20.5-51.5); MEAN CORPUSCULAR HEMOGLOBIN 28 pg (27-31); MEAN CORPUSCULAR HGB CONC 34 % (32-36); MEAN CORPUSCULAR VOLUME 82 fL (79.0-98.0); MONOCYTES # (AUTO) 0.4 K/uL (0.0-1.0); MONOCYTES % (AUTO) 4.4 % (1.7-9.3); NEUTROPHILS # (AUTO) 7.7 K/uL (1.8-7.7); NEUTROPHILS % (AUTO) 76.6 % (40.0-70.0); PLATELET COUNT (AUTO) 271 K/uL (130-430); RED BLOOD CELL COUNT(AUTO) 3.94 MIL/uL (4.2-6.2); RED CELL DISTRIBUTION WIDTH 15.6 % (9.0-15.0); WHITE BLOOD COUNT (AUTO) 10.1 K/uL (4.8-10.8)
[2019-10-19 13:54] LABS: CALCIUM 8.4 mg/dL (8.4-11.0); CREATININE 0.79 mg/dL (0.55-1.30)
[2019-10-19 14:00] LABS: ALBUMIN 2.2 g/dL (3.4-4.8); TOTAL BILIRUBIN 0.2 mg/dL (0.0-1.0)
[2019-10-19] MEDS ORDERED: INSULIN REGULAR, HUMAN 10 UNITS/0.1 ML INJ IVP ONE (14:30)
[2019-10-19 18:35] VITALS: BP_SYST 188
== END 2019-10-19 18:35 | disposition home or self-care (01) ==
LOC: SED 13:14
DX: E11.65 Type 2 diabetes mellitus with hyperglycemia (principal); N39.0 Urinary tract infection, site not specified; I10 Essential (primary) hypertension; Z88.5 Allergy status to narcotic agent; Z79.4 Long term (current) use of insulin
CPT/HCPCS: 36415; 71045; 80053; 82550; 82962; 83880; 84484; 85025; 93005; 96374; 99285; J1815; J7030

== ENCOUNTER 2020-02-29 16:22 | Emergency (ER) | payer OTHER, MEDICAID, SELFPAY ==
[~2020-02-29] VITALS: Ht 121.9 cm; Wt 52.2 kg
[2020-02-29 16:48] VITALS: BP_SYST 168
--- NOTE | 2020-02-29 16:52 | NUR ---
Patient triaged and placed on wall. VSS and patient appears in no acute distress at this time. Accompanied by detective narcotics and vice, awaiting available bed, and MD notified of need for MSE.
--- NOTE | 2020-02-29 16:56 | NUR ---
SARA Griffin at [facility] examining patient.
--- NOTE | 2020-02-29 17:06 | NUR ---
Patient to ER bed 2 to gown for evaluation. Side rails up. Report given to SHAWN Burger.
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
[2020-02-29 17:32] LABS: BASOPHILS # (AUTO) 0.1 K/uL (0.0-0.2); BASOPHILS % (AUTO) 0.5 % (0.0-2.0); EOSINOPHILS # (AUTO) 0.1 K/uL (0.0-0.4); EOSINOPHILS % (AUTO) 1.2 % (0.0-4.0); HEMATOCRIT 37.3 % (36-54); HEMOGLOBIN 12.7 g/dL (14.0-18.0); LYMPHOCYTES # (AUTO) 1.6 K/uL (1.0-5.5); MEAN CORPUSCULAR HEMOGLOBIN 29 pg (27-31); MEAN CORPUSCULAR HGB CONC 34 % (32-36); MEAN CORPUSCULAR VOLUME 84 fL (79.0-98.0); MONOCYTES # (AUTO) 0.3 K/uL (0.0-1.0); MONOCYTES % (AUTO) 3.4 % (1.7-9.3); NEUTROPHILS # (AUTO) 8.1 K/uL (1.8-7.7); NEUTROPHILS % (AUTO) 78.9 % (40.0-70.0); PLATELET COUNT (AUTO) 327 K/uL (130-430); RED BLOOD CELL COUNT(AUTO) 4.42 MIL/uL (4.2-6.2); RED CELL DISTRIBUTION WIDTH 14.2 % (9.0-15.0); WHITE BLOOD COUNT (AUTO) 10.3 K/uL (4.8-10.8)
[2020-02-29 17:52] LABS: CALCIUM 8.3 mg/dL (8.4-11.0); CREATININE 0.9 mg/dL (0.55-1.30)
[2020-02-29 17:58] LABS: ALBUMIN 2.6 g/dL (3.4-4.8); TOTAL BILIRUBIN 0.3 mg/dL (0.0-1.0)
--- NOTE | 2020-02-29 20:00 | NUR ---
VSS NO S/S OF ACUTE DISTRESS RESTING ON GURNEY RAILS UP
--- NOTE | 2020-02-29 20:10 | NUR ---
Patient given written and verbal discharge instructions and verbalizes understanding. ER MD discussed with patient the results and treatment provided. Patient in stable condition. ID arm band removed. Patient educated on pain management and to follow up with PMD. Pain Scale 0/10 Opportunity for questions provided and answered.
[2020-02-29 20:45] VITALS: BP_SYST 168
--- NOTE | 2020-02-29 20:45 | NUR ---
Pt safely picked up by BLS ([facility]) to be transfered to [place] [id number], Dr. Jacobs, and Sumeet ESCOBAR
== END 2020-02-29 20:45 | disposition home or self-care (01) ==
LOC: SED 16:22
DX: R29.6 Repeated falls (principal); I10 Essential (primary) hypertension; E11.9 Type 2 diabetes mellitus without complications; Z79.4 Long term (current) use of insulin; Z88.6 Allergy status to analgesic agent; Z20.828 Contact with and (suspected) exposure to other viral communicable diseases
CPT/HCPCS: 36415; 80053; 82962; 85025; 87040-TC; 99283